=== PATIENT | female | born 1955 | race African-American/Black ===

== ENCOUNTER 2020-02-06 10:20 | Inpatient (IN) ==
[2020-02-06 10:45] VITALS: BMI 54.9
[2020-02-06 10:51] LABS: BILIRUBIN,URINE NEGATIVE (NEGATIVE); BLOOD/HEMOGLOBIN,URINE 1+ (NEGATIVE); GLUCOSE, URINE NEGATIVE (NEGATIVE); KETONES,URINE 2+ (NEGATIVE); LEUKOCYTE ESTERASE ,URINE NEGATIVE (NEGATIVE); NITRITES,URINE NEGATIVE (NEGATIVE); PROTEIN,URINE 2+ (NEGATIVE); UROBILINOGEN,URINE 3+ (NORMAL)
[2020-02-06 10:52] LABS: COLOR,URINE DARK YELLOW (YELLOW)
[2020-02-06 10:53] LABS: APPEARANCE,URINE SLIGHTLY HAZY (CLEAR)
[2020-02-06 11:07] LABS: AMORPHOUS SEDIMENT,UR 1+ /HPF (NEGATIVE); BACTERIA,URINE TRACE /HPF (NEGATIVE); MUCUS,URINE FEW /HPF (NEGATIVE); RBC,URINE 0-2 /HPF (0-3); SQUAMOUS EPITHELIAL CELL,UR MANY /HPF (NEGATIVE)
[2020-02-06 11:21] LABS: BASOPHILS % (AUTO) 0.5 % (0.2-1.0); EOSINOPHILS % (AUTO) 0.2 % (0.9-2.9); HEMATOCRIT 42.8 % (36.0-47.0); HEMOGLOBIN 14.3 g/dL (12.0-16.0); LYMPHOCYTES # (AUTO) 2.1 X10^3/uL (1.3-2.9); LYMPHOCYTES % (AUTO) 49.3 % (21.0-51.0); MEAN CORPUSCULAR HGB CONC 33.4 g/dL (33.0-35.0); MEAN CORPUSCULAR VOLUME 92.7 fL (80.0-100.0); MEAN PLATELET VOLUME 8.1 fL (7.4-11.0); MONOCYTES # (AUTO) 0.5 x10^3/uL (0.3-0.8); MONOCYTES % (AUTO) 11.3 % (0.0-13.0); NEUTROPHILS # (AUTO) 1.7 x10^3/uL (2.2-4.8); NEUTROPHILS % (AUTO) 38.7 % (42.0-75.0); PLATELET COUNT 258 X10^3/uL (150.0-450.0); RED BLOOD COUNT 4.62 X10^6/uL (3.5-5.4); RED CELL DISTRIBUTION WIDTH 12.9 % (11.6-16.5); WHITE BLOOD COUNT 4.3 X10^3/uL (3.6-10.0)
--- NOTE | 2020-02-06 11:25 | DR.AMS ---
HPI Time Seen Time Seen by Provider: 02/06/20 11:24 HPI Comment HPI Comment: HISTORY BELOW. COUGH IS SLIGHTLY PRODUCTIVE YELLOW SPUTUM. RELATIVES NOTED PATIENT TO BE TALKING OUT OF HER HEAD THIS MORNING. PATIENT IS FROM [place] VISITING HER SON AND HIS FAMILY.HER Complaint Cheif Complaint Doctors Comments: INCREASING SOB AND COUGH TIMES FEW DAYS AND HAVING AMS TODAY. HERE VIA EMS.SHE IS COVID 19 POSITIVE. THIS TEST WAS NOT DONE AT THIS FACILITY. SHE IS WEAK AND TIRED AND HER MUSCLES ARE ACHING. Chief Complaint:: EMS WAS CALLED OUT TO PATIENT THAT WAS SOB AND AMS. PT IS NOTED TO BE A POOR HISTORIAN BUT FAMILY BARREL SCRAPER TOLD EMS THAT PT WAS COVID POSITIVE AND AMS. PT IS NOTED TO BE VERY SOB ESPECIALLY ON EXERTION AND PT IS NOTED TO HAVE A BARKING COUGH. COVID-19 Coronavirus risk:travel/contact w/high risk person: Yes Has patient experienced Coronavirus symptoms: Yes Coronavirus symptoms experienced: Coughing and Shortness of Breath Reviewed Nurses Notes Reviewed: Yes Source History Provided: Patient and EMS Mode of Arrival Mode of Arrival: EMS Timing Onset of Chief Complaint: 02/06/20 Came On: Suddenly Symptoms: Worsening Duration Duration: Constant Duration: Days Quality Quality: Change in Behavior and Confusion Severity Severity: Moderate Context Recent: Cough and Nausea History Of: None Associated Signs and Symptoms Associated Signs and Symptoms: Generalized Weakness, Headache, Change in Behavior and Confusion PMH PMH Past Medical History: Yes Past Medical History: Dyslipidemia and Hypothyroidism Past Medical History Comment: BREAST CA Past Surgical History: Yes Surgical History: Mastectomy Past Surgical History Comment: THYROID RADIATION Family History History of Family Medical Conditions: No Social History Does any household member use tobacco: No Alcohol Use: None Do you use any recreational Drugs:: No Lives With: Family Lives Where: Home Travel Risk Coronavirus risk:travel/contact w/high risk person: Yes Has patient experienced Coronavirus symptoms: Yes Coronavirus symptoms experienced: Coughing and Shortness of Breath Infectious screening In the last 2 months have you had wt loss of >10#?: NO Have you had fever, night sweats or hemotysis?: No Have you traveled outside the country in the last 6 months?: No Isolation: Droplet ROS Review of Systems Constitutional: See HPI, Malaise, Weakness and Fatigue Eyes: See HPI; negative Blurred Vision and Diplopia ENTM: See HPI and Nose Congestion; negative Ear Pain, Nose Discharge and Throat Pain Respiratoy: See HPI, Productive Cough and Short of Breath; negative Wheezing Cardiovascular: No Symptoms Reported and See HPI; negative Chest Pain, Edema and Palpitations Gastrointestinal/Abdominal: No Symptoms Reported and See HPI; negative Abdominal Pain, Diarrhea, Nausea and Vomiting Genitourinary: No Symptoms Reported and See HPI; negative Dysuria, Frequency and Hematuria Neurological: See HPI, Headache and Weakness Musculoskeletal: See HPI and Muscle Pain; negative Back Pain Integumentary: See HPI; negative Change in Color, Rash and Juandice Hematologic/Lymphatic: See HPI; negative Easy Bruising and Swollen Glands Endocrine: See HPI and Increased Thirst; negative Increased Urine Psychiatric: No Symptoms Reported and See HPI PE Vitals Vital Signs: Temp Pulse Pulse Resp BP BP Pulse Ox 02/06/20 13:30 70 104/60 89 L 02/06/20 13:15 68 90 L 02/06/20 13:00 68 104/62 91 L 02/06/20 12:45 69 93 L 02/06/20 12:30 69 105/56 94 L 02/06/20 12:28 71 117/55 95 02/06/20 12:15 67 93 L 02/06/20 12:00 73 85/51 89 L 02/06/20 11:36 75 105/61 92 L 02/06/20 11:15 89 100 02/06/20 11:00 84 92 L 02/06/20 10:45 76 89 L 02/06/20 10:42 80 89 L 02/06/20 10:30 78 24 157/84 89 L 02/06/20 10:20 98.5 F 82 24 188/114 85 L General Limitations: Altered Mental Status General Appearance: Alert and In Distress Head Head Exam: Normal Inspection and Atraumatic Head Exam Physical: Other (NONE NOTED.) Eyes Eye exam: Normal Appearance and PERRL; negative Scleral Icterus and Conjunctival Injection Pupils: Regular, Round: Bilateral and Reactive: Bilateral ENT ENT Exam: Normal Exam, Normal Oropharynx, Normal External Ear Exam and TM's Normal Bilaterally External Ear Exam: negative Mastoid Tenderness TM/Canal Exam: Bilateral: Normal Nose Exam: negative Sinus Tenderness, Nasal Deviation and Septal Hematoma Mouth Exam: negative Lip Swelling and Tongue Swelling Throat Exam: negative Tonsillar Erythema, Tonsillomegaly and Tonsillar Exudate Neck Neck Exam: Trachea Midline; negative Tenderness and Lymphadenopathy Chest Chest Inspection: Symmetric Chest Wall Rise; negative Tenderness Respiratory Respiratory Exam: Respiratory Distress; negative Accessory Muscle Use and Chest Wall Tenderness Respiratory Exam: Bilateral: Wheezing and Bilateral: Rhonchi and Lower: Wheezing and Lower: Rhonchi Cardiovascular Cardiovascular Exam: Regular Rate, Normal Rhythm and Normal Heart Sounds; negative Systolic Murmur and Diastolic Murmur Abdominal Exam Abdominal Exam: Normal Inspection, Normal Bowel Sounds and Soft; negative Tenderness Extremities Extremities Exam: Normal Capillary Refill; negative Tenderness, Edema and Calf Tenderness Back Back Exam: negative Tenderness, (R) CVA Tenderness, (L) CVA Tenderness, Paraspinal Tenderness and Vertebral Tenderness Neurological Neurological Exam: Alert and Oriented X3; negative CN II-XII Intact and Motor Sensory Deficit Patient Oriented To: Person and Place; negative Time Speech: Fluid Speech Cranial Nerve Exam: EOM Function (II, III, IV, ): Normal, Facial Sensation (V): Normal, Facial Palsy (VII): Normal, Gag reflex (XI): Normal, Spinal Accessory Function (XI): Normal and Tongue Deviation: Normal Motor Strength - LUE: 5/5 Motor Strength - RUE: 5/5 Motor Strength - LLE: 5/5 Motor Strength - RLE: 5/5 Upper Motor Neuron Exam: Babinski Sign: Normal Psychological Psychiatric Exam: Normal Affect and Anxious Expanded Psychiatric Exam: Poor Eye Contact Skin Skin Exam: Warm, Dry, Intact and Normal Color MDM Differential Diagnosis Metabolic: Dehydration, Hypercalcemia, Hypernatremia, Hypoglycemia, Hyponatremia and Hypoxemia Structural: CVA and Mass Lesion Infectious: Sepsis and UTI COURSE Treatment Treatment: SEE ORDERS. Education/Counseling Education/Counseling: Patient Educated On: Diagnosis ROR Labs Reviewed Laboratory Results Reviewed?: Yes Result Diagrams: 02/08/20 05:10 02/08/20 09:56 Laboratory: 02/06/20 11:35 Blood Blood Culture - Preliminary 02/06/20 10:32 Blood Blood Culture - Preliminary WBC 4.3 X10^3/uL (3.6-10.0) 02/06/20 10:32 RBC 4.62 X10^6/uL (3.5-5.4) 02/06/20 10:32 Hgb 14.3 g/dL (12.0-16.0) 02/06/20 10:32 Hct 42.8 % (36.0-47.0) 02/06/20 10:32 MCV 92.7 fL (80.0-100.0) 02/06/20 10:32 MCH 31.0 pg (27.0-34.0) 02/06/20 10:32 MCHC 33.4 g/dL (33.0-35.0) 02/06/20 10:32 RDW 12.9 % (11.6-16.5) 02/06/20 10:32 Plt Count 258 X10^3/uL (150.0-450.0) 02/06/20 10:32 MPV 8.1 fL (7.4-11.0) 02/06/20 10:32 Neut % (Auto) 38.7 % (42.0-75.0) L 02/06/20 10:32 Lymph % (Auto) 49.3 % (21.0-51.0) 02/06/20 10:32 Williamson % (Auto) 11.3 % (0.0-13.0) 02/06/20 10:32 Eos % (Auto) 0.2 % (0.9-2.9) L 02/06/20 10:32 Baso % (Auto) 0.5 % (0.2-1.0) 02/06/20 10:32 Neut # (Auto) 1.7 x10^3/uL (2.2-4.8) L 02/06/20 10:32 Lymph # (Auto) 2.1 X10^3/uL (1.3-2.9) 02/06/20 10:32 Williamson # (Auto) 0.5 x10^3/uL (0.3-0.8) 02/06/20 10:32 Eos # (Auto) 0.0 x10^3/uL (0.0-0.2) 02/06/20 10:32 Baso # (Auto) 0.0 X10^3/uL (0.0-0.1) 02/06/20 10:32 Absolute Nucleated RBC 0.4 /100WBC 02/06/20 10:32 PT 12.7 SECONDS (11.8-14.3) 02/06/20 10:32 INR Target Range - 02/06/20 10:32 INR 0.98 (0.8-1.3) 02/06/20 10:32 APTT 30.0 SECONDS (22.9-36.5) 02/06/20 10:32 PTT Comment - 02/06/20 10:32 D-Dimer 1280 ng/mL (0-400) H* 02/06/20 10:32 Sample Site Left brachial 02/06/20 11:36 ABG pH 7.460 (7.35-7.45) H 02/06/20 11:36 ABG pCO2 44.0 mmHg (35.0-45.0) 02/06/20 11:36 ABG pO2 56.0 mmHg (80.0-100.0) L 02/06/20 11:36 ABG HCO3 31.3 mmol/L (22-26) H* 02/06/20 11:36 ABG O2 Saturation 90.0 % (90-100) 02/06/20 11:36 ABG Base Excess 6.6 mmol/L (-2.0-2.0) H 02/06/20 11:36 Valeriano Test Na 02/06/20 11:36 A-a Gradient 89.0 mmHg 02/06/20 11:36 FiO2 28.0 02/06/20 11:36 Blood Gas Comments Sil well aw 02/06/20 11:36 Sodium 132 mmol/L (136-145) L 02/06/20 10:32 Corrected Sodium TNP 02/06/20 10:32 Potassium 3.5 mmol/L (3.5-5.1) 02/06/20 10:32 Chloride 96 mmol/L (98-107) L 02/06/20 10:32 Carbon Dioxide 28.5 mmol/L (21-32) 02/06/20 10:32 BUN 11 mg/dL (7-18) 02/06/20 10:32 Creatinine 0.91 mg/dL (0.55-1.02) 02/06/20 10:32 Est GFR (MDRD) Af Amer > 60 (>60) 02/06/20 10:32 Est GFR (MDRD) Non-Af > 60 (>60) 02/06/20 10:32 Glucose 96 mg/dL (65-99) 02/06/20 10:32 Lactic Acid 1.7 mmol/L (0.4-2.0) 02/06/20 10:32 Calcium 8.6 mg/dL (8.5-10.1) 02/06/20 10:32 Corrected Calcium 9.2 mg/dL (8.5-10.1) 02/06/20 10:32 Magnesium 1.8 mg/dL (1.7-2.9) 02/06/20 10:32 Ferritin 966 ng/mL (8-252) H 02/06/20 10:32 Total Bilirubin 1.00 mg/dL (0.2-1.0) 02/06/20 10:32 AST 63 Units/L (15-37) H 02/06/20 10:32 ALT 21 Units/L (12-78) 02/06/20 10:32 Alkaline Phosphatase 80 Units/L (46-116) 02/06/20 10:32 Creatine Kinase 286 Units/L (26-192) H 02/06/20 10:32 CK-MB (CK-2) < 1.0 ng/mL (0-4.0) 02/06/20 10:32 CK/CKMB % Calc 0.4 % (<4) 02/06/20 10:32 Troponin I 0.06 ng/mL (0-1.5) 02/06/20 10:32 B-Natriuretic Peptide 18.9 pg/mL (0-79) 02/06/20 10:32 Total Protein 8.1 g/dL (6.4-8.2) 02/06/20 10:32 Albumin 3.3 g/dL (3.4-5.0) L 02/06/20 10:32 Globulin 4.8 g/dL (2.5-4.5) H 02/06/20 10:32 Albumin/Globulin Ratio 0.7 Ratio (1.1-2.1) L 02/06/20 10:32 Specimen Type Clean catch urine 02/06/20 10:41 Urine Color Dark yellow (YELLOW) 02/06/20 10:41 Urine Appearance Slightly hazy (CLEAR) 02/06/20 10:41 Urine pH 6.0 (5.0 - 8.0) 02/06/20 10:41 Ur Specific [place] 1.015 (1.000-1.030) 02/06/20 10:41 Urine Protein 2+ (NEGATIVE) 02/06/20 10:41 Urine Glucose (UA) Negative (NEGATIVE) 02/06/20 10:41 Urine Ketones 2+ (NEGATIVE) 02/06/20 10:41 Urine Occult Blood 1+ (NEGATIVE) 02/06/20 10:41 Urine Nitrite Negative (NEGATIVE) 02/06/20 10:41 Urine Bilirubin Negative (NEGATIVE) 02/06/20 10:41 Urine Urobilinogen 3+ (NORMAL) 02/06/20 10:41 Ur Leukocyte Esterase Negative (NEGATIVE) 02/06/20 10:41 Urine RBC 0-2 /HPF (0-3) 02/06/20 10:41 Urine WBC 0-2 /HPF (0-5) 02/06/20 10:41 Ur Squamous Epith Cells Many /HPF (NEGATIVE) 02/06/20 10:41 Amorphous Sediment 1+ /HPF (NEGATIVE) 02/06/20 10:41 Urine Bacteria Trace /HPF (NEGATIVE) 02/06/20 10:41 Urine Mucus Few /HPF (NEGATIVE) 02/06/20 10:41 Ur Culture Indicated? No/not indicated 02/06/20 10:41 Other Results Comments: FINDINGS Mild age related atrophic changes are present. However there is no evidence of intracranial hemorrhage or extracerebral fluid collections. Ventricles are symmetric in size and position with no mass effect seen. Normal bray-white matter differentiation is maintained. On the bone windows, no acute bony abnormality is seen. Visualized aspect of the paranasal sinuses and mastoid air cells are clear. IMPRESSION No acute intracranial abnormality is seen on this exam XRAY XRAY Interpreted by: Radiologist (REPORT NOTED AND DISCUSSED WITH PATIENT.) and Self EKG Rate: 68 [place]: Normal Rhythm: NSR Block: None Hypertrophy: None ST: Nonsp Opioid Opioid Risk Tool Age (Brayden box if 16-45): No History of Preadolescent Sexual Abuse: No Total: 0 Total Score Risk Category: Low Risk Copyright: [facility] predicting aberrant behaviors Diagnosis Discharge Problem: Hypoxia, SOB (shortness of breath) Pneumonia Qualifiers: Pneumonia type: due to unspecified organism Laterality: bilateral Lung location: upper lobe of lung Qualified Code(s): J18.9 - Pneumonia, unspecified organism Instructions Instructions: Shortness of Breath, Adult, [id number] Hypoxia Cough, Adult Community-Acquired Pneumonia, Adult Forms: Excuse From Work or School Precautions for COVID19 Patient Portal Social Distancing
--- NOTE | 2020-02-06 11:29 | RAD ---
HISTORYSOB, HYPOXIA, COVID +STUDYPortable AP chestCOMPARISONNoneFINDINGSThere is limited inspiration. There is mildly increased patchy density primarily in the upper lobes. There are multiple surgical clips in the right axilla. The heart size is normal and the aorta is tortuous. There is no obvious effusion.IMPRESSIONMild infiltrate suggested in the upper lobes bilaterally that may be secondary to pneumonitis.Electronically signed by: AURELIA FREEMAN (Feb 06, 2020 11:28:19)
[2020-02-06 11:33] LABS: BLOOD UREA NITROGEN 11 mg/dL (7-18); CALCIUM 8.6 mg/dL (8.5-10.1); CARBON DIOXIDE 28.5 mmol/L (21-32); CHLORIDE 96 mmol/L (98-107); CREATININE 0.91 mg/dL (0.55-1.02); SODIUM 132 mmol/L (136-145); TROPONIN I 0.06 ng/mL (0-1.5); eGFR NON BLACK RACES > 60 (>60)
[2020-02-06 11:37] LABS: ALANINE AMINOTRANSFERASE 21 Units/L (12-78); ALBUMIN 3.3 g/dL (3.4-5.0); ALKALINE PHOSPHATASE 80 Units/L (46-116); ASPARTATE AMINO TRANSFERASE 63 Units/L (15-37); CKMB % 0.4 % (<4); COR CA(FOR HYPOALB) 9.2 mg/dL (8.5-10.1); CREATINE KINASE 286 Units/L (26-192); CREATINE KINASE MB < 1.0 ng/mL (0-4.0); MAGNESIUM 1.8 mg/dL (1.7-2.9); TOTAL PROTEIN 8.1 g/dL (6.4-8.2)
[2020-02-06 11:46] LABS: ABG BASE EXCESS 6.6 mmol/L (-2.0-2.0)
[2020-02-06 11:47] LABS: ABG HCO3 31.3 mmol/L (22-26)
[2020-02-06 11:49] LABS: LACTIC ACID 1.7 mmol/L (0.4-2.0)
--- NOTE | 2020-02-06 11:52 | CT ---
[id number] female with altered mental statusSTUDYBRAIN W/O CONCOMPARISONNoneTECHNIQUEAxial imaging was performed from the vertex to the base of skull without intravenous contrast being administered. Sagittal and coronal reformations were generated. Automated exposure control techniques were used with this exam.FINDINGSMild age related atrophic changes are present. However there is no evidence of intracranial hemorrhage or extracerebral fluid collections. Ventricles are symmetric in size and position with no mass effect seen. Normal bray-white matter differentiation is maintained. On the bone windows, no acute bony abnormality is seen. Visualized aspect of the paranasal sinuses and mastoid air cells are clear.IMPRESSIONNo acute intracranial abnormality is seen on this examElectronically signed by: BROWN ALEXANDRA (Feb 06, 2020 11:51:12)
--- NOTE | 2020-02-06 14:02 | CT ---
HISTORYELEVATED D DIMER, COVID POSITIVE, SOB, COUGHSTUDYCTA CHEST with IV contrastCOMPARISONX-ray from same dayTECHNIQUEMultiple axial images of the chest were obtained from the thoracic inlet to the upper abdomen after the administration of IV contrast. 3D reconstructions utilizing axial MIPS imaging was performed and reviewed. Dose reduction techniques including Automated Exposure Control (AEC) and adjustment of mA and kV were utilized.FINDINGSGround-glass and interstitial infiltrates are seen throughout both lungs. Findings are concerning for atypical pneumonia. Borderline cardiomegaly is seen without pulmonary venous congestion. No pneumothorax or pleural effusion is seen.Mild mediastinal lymphadenopathy is seen with several lymph nodes measuring greater than 1 cm in the short axis. These are probable reactive lymph nodes but continued CT follow-up in a few months time is recommended to assure resolution. Thoracic aorta is normal in size without evidence of dissection.Cholelithiasis is seen in the upper abdomen. Timing of contrast bolus is suboptimal in the pulmonary arteries as contrast is more dense in the aorta. Distal pulmonary artery branches are not well evaluated due to the suboptimal timing and the lung infiltrates. No large proximal pulmonary embolus is seen.IMPRESSIONBilateral pneumonia is probably from atypical pneumonia.Mild mediastinal lymphadenopathy is probably reactive lymphadenopathy but a few of the lymph nodes measure greater than 1 cm in the short axis. Follow-up chest CT in a few months time is recommended to assure resolution.No pulmonary embolus is seen but evaluation of distal pulmonary artery branches is limited as described above.Electronically signed by: Talon Sutton (Feb 06, 2020 14:01:18)
[2020-02-06] MEDS ORDERED: TUSSIONEX PENNKINETIC SUSP PO PRN (14:22)
[2020-02-06] MEDS ORDERED: REMDESIVIR (INVESTIGATIONAL DRUG GS-5734) IV ONE (14:38)
[2020-02-06] MEDS ORDERED: ASCORBIC ACID INJ MULTI-DOSE VIAL IM SCH (14:38)
[2020-02-06] MEDS ORDERED: NS 1/2 1000 ML IV 1,000 ML IV SCH (15:00)
[2020-02-06] MEDS ORDERED: PLAQUENIL PO SCH (15:00)
[2020-02-06] MEDS ORDERED: REMDESIVIR (INVESTIGATIONAL DRUG GS-5734) 200 MG in NS 250 ML IV 250 ML IV ONE (15:00)
[2020-02-06] MEDS ORDERED: CORTEF ONE ×2 (16:49→20:12)
[2020-02-06] MEDS: NS 100 ML IV 100 ML with ASCORBIC ACID INJ MULTI-DOSE VIAL 1,500 MG IV SCH ×4 (16:57→21:06)
[2020-02-06] MEDS: NS 1000 ML 1,000 ML IV SCH (16:57)
[2020-02-06] MEDS: CORTEF PO SCH ×2 (17:00→21:02)
[2020-02-06] MEDS: ROBITUSSIN DM PO SCH ×2 (17:01→21:05)
[2020-02-06] MEDS: PROVENTIL NEB TX 0.083% 2.5MG/ 3ML NEB SCH ×2 (17:50→21:15)
[2020-02-06] MEDS: VITAMIN D (1.25MG) PO SCH (18:01)
[2020-02-06] MEDS: LOVENOX INJ 30 MG SYR SC SCH (21:05)
[2020-02-06] MEDS: PLAQUENIL PO SCH (21:05)
[2020-02-06] MEDS: ZINC SULFATE PO SCH (21:06)
[2020-02-06] MEDS: PULMICORT NEB TX 0.5 MG NEB SCH (21:15)
[2020-02-06] MEDS: THIAMINE HCL INJ IM SCH (21:34)
[2020-02-07] MEDS: NS 100 ML IV 100 ML with ASCORBIC ACID INJ MULTI-DOSE VIAL 1,500 MG IV SCH ×8 (04:50→21:20)
[2020-02-07 06:25] LABS: EOSINOPHILS % (AUTO) 0.1 % (0.9-2.9); HEMATOCRIT 39.7 % (36.0-47.0); HEMOGLOBIN 13.5 g/dL (12.0-16.0); LYMPHOCYTES # (AUTO) 1.6 X10^3/uL (1.3-2.9); LYMPHOCYTES % (AUTO) 47.6 % (21.0-51.0); MEAN CORPUSCULAR HEMOGLOBIN 31.2 pg (27.0-34.0); MEAN CORPUSCULAR HGB CONC 33.9 g/dL (33.0-35.0); MEAN CORPUSCULAR VOLUME 91.9 fL (80.0-100.0); MEAN PLATELET VOLUME 7.6 fL (7.4-11.0); MONOCYTES # (AUTO) 0.5 x10^3/uL (0.3-0.8); MONOCYTES % (AUTO) 13.9 % (0.0-13.0); NEUTROPHILS # (AUTO) 1.2 x10^3/uL (2.2-4.8); NEUTROPHILS % (AUTO) 37.4 % (42.0-75.0); PLATELET COUNT 256 X10^3/uL (150.0-450.0); RED BLOOD COUNT 4.32 X10^6/uL (3.5-5.4); RED CELL DISTRIBUTION WIDTH 13.4 % (11.6-16.5); WHITE BLOOD COUNT 3.3 X10^3/uL (3.6-10.0)
[2020-02-07 06:37] LABS: ALANINE AMINOTRANSFERASE 18 Units/L (12-78); ALBUMIN 2.8 g/dL (3.4-5.0); ALKALINE PHOSPHATASE 71 Units/L (46-116); ASPARTATE AMINO TRANSFERASE 52 Units/L (15-37); BLOOD UREA NITROGEN 9 mg/dL (7-18); CALCIUM 8.3 mg/dL (8.5-10.1); CARBON DIOXIDE 29.2 mmol/L (21-32); CHLORIDE 100 mmol/L (98-107); COR CA(FOR HYPOALB) 9.3 mg/dL (8.5-10.1); CREATININE 0.58 mg/dL (0.55-1.02); SODIUM 135 mmol/L (136-145); TOTAL PROTEIN 7.2 g/dL (6.4-8.2); eGFR NON BLACK RACES > 60 (>60)
[2020-02-07 06:53] LABS: PLATELET MORPHOLOGY COMMENT NORMAL (NORMAL)
[2020-02-07] MEDS ORDERED: VITAMIN A PO SCH (09:00)
[2020-02-07] MEDS ORDERED: ULTRAM PO PRN (09:17)
[2020-02-07] MEDS ORDERED: TUSSIONEX PENNKINETIC SUSP PO PRN (09:21)
[2020-02-07] MEDS ORDERED: AMBIEN PO PRN (09:21)
[2020-02-07] MEDS: PULMICORT NEB TX 0.5 MG NEB SCH ×2 (09:30→20:55)
[2020-02-07] MEDS: PROVENTIL NEB TX 0.083% 2.5MG/ 3ML NEB SCH ×4 (09:30→20:55)
[2020-02-07] MEDS: NEURONTIN CAP 300 MG PO SCH ×4 (10:05→21:20)
[2020-02-07] MEDS: DECADRON TAB PO SCH (10:06)
[2020-02-07] MEDS: LOVENOX INJ 30 MG SYR SC SCH ×2 (10:07→21:20)
[2020-02-07] MEDS: THIAMINE HCL INJ IM SCH ×2 (10:08→22:54)
[2020-02-07] MEDS: PLAQUENIL PO SCH ×2 (10:09→21:20)
[2020-02-07] MEDS: EFFEXOR TAB 75 MG (BID DOSING) PO SCH ×2 (10:09→21:20)
[2020-02-07] MEDS: ROBITUSSIN DM PO SCH ×4 (10:10→21:20)
[2020-02-07] MEDS: REMDESIVIR (INVESTIGATIONAL DRUG GS-5734) 100 MG in NS 250 ML IV 250 ML IV SCH (10:10)
[2020-02-07] MEDS: VITAMIN D (1.25MG) PO SCH (10:10)
[2020-02-07] MEDS: ZINC SULFATE PO SCH ×2 (12:31→21:20)
[2020-02-07] MEDS: NS 1000 ML 1,000 ML IV SCH (15:23)
[2020-02-07] MEDS: SYNTHROID 125 mcg TAB PO SCH (16:33)
[2020-02-08] MEDS ORDERED: ASCORBIC ACID INJ MULTI-DOSE VIAL ONE (02:03)
[2020-02-08] MEDS: NS 100 ML IV 100 ML with ASCORBIC ACID INJ MULTI-DOSE VIAL 1,500 MG IV SCH ×4 (02:47→09:23)
[2020-02-08 05:35] LABS: BASOPHILS # (AUTO) 0.1 X10^3/uL (0.0-0.1); BASOPHILS % (AUTO) 2.5 % (0.2-1.0); EOSINOPHILS % (AUTO) 0.1 % (0.9-2.9); HEMATOCRIT 39.4 % (36.0-47.0); HEMOGLOBIN 13.2 g/dL (12.0-16.0); LYMPHOCYTES # (AUTO) 1.5 X10^3/uL (1.3-2.9); LYMPHOCYTES % (AUTO) 34.7 % (21.0-51.0); MEAN CORPUSCULAR HGB CONC 33.5 g/dL (33.0-35.0); MEAN CORPUSCULAR VOLUME 92.7 fL (80.0-100.0); MONOCYTES # (AUTO) 0.6 x10^3/uL (0.3-0.8); MONOCYTES % (AUTO) 14.7 % (0.0-13.0); NEUTROPHILS # (AUTO) 2.1 x10^3/uL (2.2-4.8); PLATELET COUNT 307 X10^3/uL (150.0-450.0); RED BLOOD COUNT 4.25 X10^6/uL (3.5-5.4); RED CELL DISTRIBUTION WIDTH 12.9 % (11.6-16.5); WHITE BLOOD COUNT 4.3 X10^3/uL (3.6-10.0)
[2020-02-08 05:40] LABS: ALANINE AMINOTRANSFERASE 18 Units/L (12-78); ALBUMIN 3.1 g/dL (3.4-5.0); ALKALINE PHOSPHATASE 72 Units/L (46-116); ASPARTATE AMINO TRANSFERASE 34 Units/L (15-37); BLOOD UREA NITROGEN 9 mg/dL (7-18); CALCIUM 8.2 mg/dL (8.5-10.1); CARBON DIOXIDE 30.9 mmol/L (21-32); CHLORIDE 101 mmol/L (98-107); COR CA(FOR HYPOALB) 8.9 mg/dL (8.5-10.1); COR NA(FOR HYPERGLY) 136 mmol/L (136-145); CREATININE 0.61 mg/dL (0.55-1.02); SODIUM 136 mmol/L (136-145); TOTAL PROTEIN 7.5 g/dL (6.4-8.2); eGFR NON BLACK RACES > 60 (>60)
[2020-02-08] MEDS ORDERED: POTASSIUM CHLORIDE LIQ 20 MEQ UDC PO PRN (06:12)
[2020-02-08] MEDS ORDERED: MICRO K EXTEN CAP 10 MEQ PO PRN (06:12)
[2020-02-08] MEDS ORDERED: POTASSIUM CHL 60 MEQ/NS 0.45% 500 ML IV PRN (06:12)
[2020-02-08] MEDS ORDERED: K-RIDER 10 MEQ/NS 100 ML 10 MEQ/100 ML BAG IV PRN (06:12)
[2020-02-08] MEDS ORDERED: K-DUR TAB 20 MEQ PO PRN (06:12)
[2020-02-08] MEDS ORDERED: KLOR-CON PO PRN (06:12)
[2020-02-08] MEDS ORDERED: POTASSIUM CHL 40 MEQ/NS 0.45% 500 ML IV PRN (06:12)
[2020-02-08] MEDS ORDERED: K-DUR TAB 20 MEQ PO ONE (06:20)
[2020-02-08] MEDS: PROVENTIL NEB TX 0.083% 2.5MG/ 3ML NEB SCH (08:20)
[2020-02-08] MEDS: PULMICORT NEB TX 0.5 MG NEB SCH (08:20)
[2020-02-08] MEDS ORDERED: VITAMIN A PO SCH (09:00)
[2020-02-08] MEDS ORDERED: WELLBUTRIN XL 300 MG (DAILY) PO SCH (09:00)
[2020-02-08] MEDS ORDERED: VITAMIN D3 25 mcg (1,000 UNITS) PO SCH (09:00)
[2020-02-08] MEDS: DECADRON TAB PO SCH (09:22)
[2020-02-08] MEDS: NEURONTIN CAP 300 MG PO SCH (09:23)
[2020-02-08] MEDS: ZINC SULFATE PO SCH (09:23)
[2020-02-08] MEDS: EFFEXOR TAB 75 MG (BID DOSING) PO SCH (09:23)
[2020-02-08] MEDS: LOVENOX INJ 30 MG SYR SC SCH (09:25)
[2020-02-08] MEDS: SYNTHROID 125 mcg TAB PO SCH (09:26)
[2020-02-08] MEDS: THIAMINE HCL INJ IM SCH (09:27)
[2020-02-08] MEDS: PLAQUENIL PO SCH (09:27)
[2020-02-08] MEDS: ROBITUSSIN DM PO SCH (09:28)
[2020-02-08] MEDS ORDERED: K-DUR TAB 20 MEQ PO SCH (10:00)
[2020-02-08] MEDS: REMDESIVIR (INVESTIGATIONAL DRUG GS-5734) 100 MG in NS 250 ML IV 250 ML IV SCH (10:37)
[2020-02-08 12:39] VITALS: BP 119/82
== END 2020-02-08 13:40 | disposition home or self-care (01) | DRG 177 ==
LOC: ER 10:20 → MED/SURG 14:18
PROVIDERS: ADMIT Obstetrics & Gynecology Obstetrics; ATTEND Obstetrics & Gynecology Obstetrics
DX: R41.82 Altered mental status, unspecified; U07.1 COVID-19; J12.89 Other viral pneumonia; R06.02 Shortness of breath
CPT/HCPCS: 36415; 36600; 70450; 71010; 71045; 71275; 80053; 81001; 82550; 82553; 82728; 82803; 83605; 83735; 83880; 84132; 84484; 85025; 85378; 85610; 85730; 87040; 93005; 94640; 94760; 96365; 96374; 99284; A4222; J1650; J3411; J7030; J7050; J7613; J7626; J8540